=== PATIENT | male | born 1975 ===

== ENCOUNTER 2017-04-13 13:50 | Emergency (ER) | payer OTHER ==
[2017-04-13 14:14] VITALS: TEMP 98
--- NOTE | 2017-04-13 16:03 | RAD ---
PROCEDURE: Radiographs of the Chest and Left Ribs. HISTORY: r/o fx COMPARISON: None available. TECHNIQUE: Frontal radiograph of the chest and multiple oblique radiographs of the left ribs were obtained. FINDINGS: LEFT RIBS: Suspect displaced fracture most anterior aspect left 10th rib, possibly involving the costal cartilage. No other rib fracture identified. LUNGS: Normal PLEURA: No pneumothorax or pleural fluid. CARDIOVASCULAR: Normal sized heart. No pulmonary vascular congestion. OTHER FINDINGS: None. IMPRESSION: Probable displaced fracture anterior aspect left 10th rib, possibly involving the costal cartilage. Please correlate clinically. Otherwise unremarkable.
--- NOTE | 2017-04-13 16:04 | RAD ---
PROCEDURE: Right Ankle Radiographs. HISTORY: r/o fx COMPARISON: None FINDINGS: BONES: Normal. No fracture. JOINTS: Normal. No osteoarthritis. Ankle mortise maintained. Talar dome intact SOFT TISSUES: Normal. OTHER FINDINGS: None. IMPRESSION: Normal right ankle radiographs.
--- NOTE | 2017-04-13 16:05 | RAD ---
PROCEDURE: Bilateral hand radiographs. HISTORY: r/o fx COMPARISON: None. FINDINGS: BONES: Right Hand: Normal. No osteoarthritic changes. Left Hand: Normal. No osteoarthritic changes. JOINTS: Right Hand: Normal. Left Hand: Normal. SOFT TISSUES: Right Hand: Normal. Left Hand: Normal. OTHER FINDINGS: None. IMPRESSION: Normal radiographs of the hands.
[2017-04-13] MEDS ORDERED: Bacitracin 500 Units/gm Oint Foilpak UD ONE (18:00)
[2017-04-13 18:04] VITALS: RESP 18
[2017-04-13 18:11] VITALS: BP 128/75; PULSE 75; O2SAT 98
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
--- NOTE | 2017-04-14 08:27 | CT ---
PROCEDURE: CT HEAD WITHOUT CONTRAST. HISTORY: r/o fx and ICH COMPARISON: None available. TECHNIQUE: Axial computed tomography images were obtained through the head/brain without intravenous contrast. Radiation dose: Total exam DLP = 1211.32 mGy-cm. This CT exam was performed using one or more of the following dose reduction techniques: Automated exposure control, adjustment of the mA and/or kV according to patient size, and/or use of iterative reconstruction technique. FINDINGS: HEMORRHAGE: No intracranial hemorrhage. BRAIN: No mass effect or edema. No atrophy or chronic microvascular ischemic changes. VENTRICLES: Unremarkable. No hydrocephalus. CALVARIUM: Unremarkable. PARANASAL SINUSES: Unremarkable as visualized. No significant inflammatory changes. MASTOID AIR CELLS: Unremarkable as visualized. No inflammatory changes. OTHER FINDINGS: None. IMPRESSION: No intracranial hemorrhage. No intracranial mass or evidence of acute infarct. Preliminary interpretation of this examination was reported by [facility] at 4:51 p.m. on 04/13/2017. There is concurrence of this report with the preliminary interpretation.
--- NOTE | 2017-04-14 08:45 | CT ---
PROCEDURE: CT ORBITS WITHOUT CONTRAST. HISTORY: r/o fx COMPARISON: None available. TECHNIQUE: Axial CT images of the orbits were obtained. Coronal and sagittal reformats were generated. Radiation dose: Total exam DLP = 804.56 mGy-cm. This CT exam was performed using one or more of the following dose reduction techniques: Automated exposure control, adjustment of the mA and/or kV according to patient size, and/or use of iterative reconstruction technique. FINDINGS: RIGHT ORBIT: RIGHT BONY ORBIT: Normal. RIGHT INTRAORBITAL STRUCTURES: Globe: Normal. Extraocular muscles: Normal. Post septal space: Normal. Optic Nerve: Normal. Lacrimal Apparatus: Normal. RIGHT PRESEPTAL SOFT TISSUES: Normal. LEFT ORBIT: LEFT BONY ORBIT: Normal. LEFT INTRAORBITAL STRUCTURES: Globe: Normal. Extraocular muscles: Normal. Post septal space: Normal Optic Nerve: Normal. . Lacrimal Apparatus: Normal. LEFT PRESEPTAL SOFT TISSUES: Normal. OTHER: There is soft tissue swelling noted over the left maxilla and zygoma. Multiple dermal calcifications or foreign bodies are identified bilaterally, over the mandible and maxilla. IMPRESSION: No evidence of orbital fracture. No evidence of orbital hemorrhage. Soft tissue swelling over left maxilla and zygoma. Multiple dermal calcifications/foreign bodies. Preliminary interpretation of this examination was reported by [facility] at 4:57 p.m. on 04/13/2017. There is concurrence of this report with the preliminary interpretation.
== END 2017-04-13 18:11 | disposition home or self-care (01) ==
LOC: C.ER 13:50
DX: S22.32XA Fracture of one rib, left side, initial encounter for closed fracture (principal); Y04.2XXA Assault by strike against or bumped into by another person, initial encounter; Y93.89 Activity, other specified; Y92.89 Other specified places as the place of occurrence of the external cause